=== PATIENT | female | born 1985 | race Caucasian/White ===

== ENCOUNTER → 2017-12-01 | Outpatient (CLI) | payer OTHER ==
[~2017-12-01] MED LIST: CEPH500 PO; DOCU100 PO; IBUP800 PO; Percocet 5-3251 EACH PO; SILSUL1TC TOP
== END | disposition home or self-care (01) ==
LOC: LAB 15:35
DX: Z34.80 Encounter for supervision of other normal pregnancy, unspecified trimester (principal)
CPT/HCPCS: 87081; 87653

== ENCOUNTER 2017-12-20 16:23 | Inpatient (IN) | payer OTHER ==
[~2017-12-20] VITALS: Ht 162.6 cm; Wt 80.0 kg
[~2017-12-20 16:23] MED LIST changes: -DOCU100 PO; -IBUP800 PO; -Percocet 5-3251 EACH PO
[2017-12-20 18:53] LABS: BASOPHILS ABSOLUTE AUTO 0.02 K/mm3 (0.00-0.23); BASOPHILS PERCENT AUTO 0 % (0-2); EOSINOPHILS ABSOLUTE AUTO 0.09 K/mm3 (0.00-0.68); EOSINOPHILS PERCENT AUTO 1 % (0-6); Hematocrit 35.9 % (33.0-51.0); Hemoglobin 12.1 g/dL (11.5-16.0); IMMATURE GRAN ABSOLUTE AUTO 0.06 K/mm3 (0.00-0.10); IMMATURE GRAN PERCENT AUTO 0 % (0-1); LYMPHOCYTES ABSOLUTE AUTO 1.67 K/mm3 (0.84-5.20); LYMPHOCYTES PERCENT AUTO 13 % (21-46); MONOCYTES PERCENT AUTO 8 % (4-13); Mean Corpuscular HGB 31.9 pg (26.0-34.0); Mean Corpuscular HGB Conc 33.7 g/dL (31.5-36.5); Mean Corpuscular Volume 95 fL (80-100); Mean Platelet Volume 11.1 fL (9.1-12.4); NEUTROPHILS ABSOLUTE AUTO 10.56 K/mm3 (1.96-9.15); NEUTROPHILS PERCENT AUTO 79 % (41-73); Platelet Count 319 K/mm3 (150-400); RDW Coefficient Variation 12.7 % (11.7-14.2); Red Blood Cell Count 3.79 M/mm3 (3.80-5.20)
[2017-12-22 09:44] LABS: BASOPHILS ABSOLUTE AUTO 0.03 K/mm3 (0.00-0.23); BASOPHILS PERCENT AUTO 0 % (0-2); EOSINOPHILS ABSOLUTE AUTO 0.21 K/mm3 (0.00-0.68); EOSINOPHILS PERCENT AUTO 2 % (0-6); Hematocrit 33.8 % (33.0-51.0); Hemoglobin 11.3 g/dL (11.5-16.0); IMMATURE GRAN ABSOLUTE AUTO 0.03 K/mm3 (0.00-0.10); IMMATURE GRAN PERCENT AUTO 0 % (0-1); LYMPHOCYTES ABSOLUTE AUTO 2.07 K/mm3 (0.84-5.20); LYMPHOCYTES PERCENT AUTO 19 % (21-46); MONOCYTES ABSOLUTE AUTO 0.96 K/mm3 (0.16-1.47); MONOCYTES PERCENT AUTO 9 % (4-13); Mean Corpuscular HGB 31.7 pg (26.0-34.0); Mean Corpuscular HGB Conc 33.4 g/dL (31.5-36.5); Mean Corpuscular Volume 95 fL (80-100); Mean Platelet Volume 10.5 fL (9.1-12.4); NEUTROPHILS ABSOLUTE AUTO 7.39 K/mm3 (1.96-9.15); NEUTROPHILS PERCENT AUTO 69 % (41-73); Platelet Count 270 K/mm3 (150-400); RDW Coefficient Variation 12.7 % (11.7-14.2); Red Blood Cell Count 3.56 M/mm3 (3.80-5.20); White Blood Cell Count 10.69 K/mm3 (4.00-11.30)
[2017-12-22] MEDS ORDERED: Percocet 5-3251 EACH PO (15:17)
[2017-12-22] MEDS ORDERED: IBUP800 PO (15:17)
[2017-12-22] MEDS ORDERED: DOCU100 PO (15:18)
== END 2017-12-22 15:45 | disposition home or self-care (01) | DRG 775 ==
LOC: OBS 16:23 → BC 16:23 → OBS 17:09 → BC 17:11
PROVIDERS: Advanced Practice Midwife
PROC: 10E0XZZ Delivery of Products of Conception, External Approach (ICD-10-PCS; principal; 2017-12-21)
PROC: 3E0E7GC Introduction of Other Therapeutic Substance into Products of Conception, Via Natural or Artificial Opening (ICD-10-PCS; 2017-12-21)
DX: O42.02 Full-term premature rupture of membranes, onset of labor within 24 hours of rupture (principal); Z3A.39 39 weeks gestation of pregnancy; Z37.0 Single live birth; O76 Abnormality in fetal heart rate and rhythm complicating labor and delivery; Z87.891 Personal history of nicotine dependence
CPT/HCPCS: 36415; 59025; 59070; 81003; 85025; 90707; J1885; J2405; J2590; J3010; J7030; J7120

== ENCOUNTER → 2019-05-17 | Outpatient (CLI) | payer OTHER ==
[~2019-05-17] MED LIST changes: +DOCU100 PO; +IBUP800 PO; +MTERYTI COMBO1 EACH PO; +Percocet 5-3251 EACH PO
== END ==
LOC: LAB 16:59 → LAB SHORT 16:59
DX: O30.009 Twin pregnancy, unspecified number of placenta and unspecified number of amniotic sacs, unspecified trimester (principal)
CPT/HCPCS: 87081; 87653

== ENCOUNTER 2019-05-30 05:52 | Inpatient (IN) | payer OTHER ==
[~2019-05-30] VITALS: Ht 162.6 cm; Wt 80.9 kg
[~2019-05-30 05:52] MED LIST changes: -MTERYTI COMBO1 EACH PO
[2019-05-30 06:51] LABS: BASOPHILS ABSOLUTE AUTO 0.04 K/mm3 (0.00-0.23); BASOPHILS PERCENT AUTO 0 % (0-2); EOSINOPHILS ABSOLUTE AUTO 0.13 K/mm3 (0.00-0.68); EOSINOPHILS PERCENT AUTO 1 % (0-6); Hematocrit 33.4 % (33.0-51.0); IMMATURE GRAN ABSOLUTE AUTO 0.02 K/mm3 (0.00-0.10); IMMATURE GRAN PERCENT AUTO 0 % (0-1); LYMPHOCYTES ABSOLUTE AUTO 1.47 K/mm3 (0.84-5.20); LYMPHOCYTES PERCENT AUTO 14 % (21-46); MONOCYTES ABSOLUTE AUTO 1.02 K/mm3 (0.16-1.47); MONOCYTES PERCENT AUTO 10 % (4-13); Mean Corpuscular HGB 30.6 pg (26.0-34.0); Mean Corpuscular HGB Conc 32.9 g/dL (31.5-36.5); Mean Corpuscular Volume 93 fL (80-100); Mean Platelet Volume 11.1 fL (9.1-12.4); NEUTROPHILS ABSOLUTE AUTO 7.51 K/mm3 (1.96-9.15); NEUTROPHILS PERCENT AUTO 74 % (41-73); Platelet Count 296 K/mm3 (150-400); RDW Coefficient Variation 12.4 % (11.7-14.2); RDW Standard Deviation 42.4 fL (35.1-46.3); White Blood Cell Count 10.19 K/mm3 (4.00-11.30)
--- NOTE | 2019-05-30 18:22 | NUR ---
ASSIST DEMONSTRATED SELF EXPRESSION OF BREASTMILK. PUMPS SET UP WITH INSTRCUTEING MOM PUMPING AND RELEASING WEELL. HAND OUT GIVEN ON EDUCATION RESOURCES HAND ON PUNPING ECT. FEEDING LOGS GIVEN WITH INSTRUCTION. BABY BOTTLE OR SPOON FEEDING FOR NOT TO CONSERVE ENERGY. EACH BABY DRANK APPROX 2 CC COLOSTROM OFF SPOON.
[2019-05-31 05:36] LABS: Hematocrit 32.9 % (33.0-51.0); Hemoglobin 10.4 g/dL (11.5-16.0); Mean Corpuscular HGB 30.5 pg (26.0-34.0); Mean Corpuscular HGB Conc 31.6 g/dL (31.5-36.5); Mean Platelet Volume 11.2 fL (9.1-12.4); Platelet Count 260 K/mm3 (150-400); RDW Coefficient Variation 12.7 % (11.7-14.2); RDW Standard Deviation 45.1 fL (35.1-46.3); Red Blood Cell Count 3.41 M/mm3 (3.80-5.20); White Blood Cell Count 9.24 K/mm3 (4.00-11.30)
[2019-05-31 05:44] LABS: Mean Corpuscular Volume 97 fL (80-100)
--- NOTE | 2019-05-31 07:31 | NUR ---
sleeping, snoring in bed, fob sleeping on dad bed, dr carlson to room to see patient
[2019-05-31] MEDS ORDERED: MTERYTI COMBO1 EACH PO (10:01)
[2019-05-31] MEDS ORDERED: IBUP800 PO (10:01)
--- NOTE | 2019-05-31 10:41 | NUR ---
AGREES TO DO THE CORE REFERRAL
--- NOTE | 2019-05-31 18:00 | NUR ---
plan to discharge to boarder status, pain meds given, pt is a little painful and has not been laying down at all, is always up moving in room, pumping, or feeding baby's. will recheck blood pressure
--- NOTE | 2019-05-31 18:32 | NUR ---
dc to boarder status, pt has no lightheaded, no visual disturbances, no headache, no nausea vomiting, no upper epigastric pain, pt does have up in room all the time, up feeding baby's. pumping every 2-3 hours taking care of twins, when pt layed on her side for 20-25 mintues, closed her eyes to rest. her blood pressure came down nicely, pt is aware she is doing alot and needs a little help. encouraged to call for help and rn will help. fob at bedside, sleeping on dad bed. baby;s due to eat at [phone]
== END 2019-05-31 18:30 | disposition home or self-care (01) | DRG 807 ==
LOC: BC 05:52
PROVIDERS: ADMIT Obstetrics & Gynecology
PROC: 10E0XZZ Delivery of Products of Conception, External Approach (ICD-10-PCS; principal; 2019-05-30)
PROC: 10907ZC Drainage of Amniotic Fluid, Therapeutic from Products of Conception, Via Natural or Artificial Opening (ICD-10-PCS; 2019-05-30)
PROC: 3E0S3BZ Introduction of Anesthetic Agent into Epidural Space, Percutaneous Approach (ICD-10-PCS; 2019-05-30)
PROC: 00HU33Z Insertion of Infusion Device into Spinal Canal, Percutaneous Approach (ICD-10-PCS; 2019-05-30)
DX: O36.5931 Maternal care for other known or suspected poor fetal growth, third trimester, fetus 1 (principal); Z37.2 Twins, both liveborn; O36.5932 Maternal care for other known or suspected poor fetal growth, third trimester, fetus 2; O30.043 Twin pregnancy, dichorionic/diamniotic, third trimester; Z3A.37 37 weeks gestation of pregnancy
CPT/HCPCS: 36415; 51702; 85025; 85027; 88307; 90471; 90707; A9270; J1885; J2001; J2405; J2590; J3010; J7120

== ENCOUNTER 2023-03-26 11:53 | Emergency (ER) | payer OTHER ==
[~2023-03-26] VITALS: Ht 167.6 cm; Wt 52.2 kg
[~2023-03-26 11:53] MED LIST changes: +MTERYTI COMBO1 EACH PO
[2023-03-26 12:06] VITALS: BP 153/90
[2023-03-26] MEDS ORDERED: HYDR1TAB94 PO (12:09)
[2023-03-26] MEDS ORDERED: Amoxicillin500 MG PO (12:09)
== END 2023-03-26 12:08 | disposition home or self-care (01) ==
LOC: ER 11:53
DX: K04.7 Periapical abscess without sinus (principal); Z79.899 Other long term (current) drug therapy; Z87.891 Personal history of nicotine dependence
CPT/HCPCS: 99282